=== PATIENT | female | born 1975 | race Caucasian/White ===

== ENCOUNTER 2016-06-11 12:34 | Emergency (ER) | payer SELFPAY ==
[~2016-06-11] VITALS: Ht 154.9 cm; Wt 56.7 kg
[2016-06-11 12:36] VITALS: BP 126/87
[2016-06-11] MEDS ORDERED: FLUORESCEIN OPHTH TEST STRIP. OS ONE (13:15)
[2016-06-11] MEDS ORDERED: TETRACAINE 0.5% OPHTH SOLUTION 4ML BOTTLE. OS ONE (13:15)
[2016-06-11] MEDS ORDERED: EYE-STREAM OPHTH SOLUTION 120 ML BOTTLE. OS ONE (13:15)
[2016-06-11] MEDS ORDERED: SULF1TAB24 PO (13:16)
[2016-06-11] MEDS ORDERED: POLY10DR3 LEFTEYE (13:16)
--- NOTE | 2016-06-11 13:16 | PHYS DOC ---
Past Medical History Past Medical History: Anxiety, Cancer, Depression Past Surgical History: Appendectomy, Cholecystectomy, Hysterectomy Alcohol Use: None Drug Use: None Adult General Chief Complaint Chief Complaint: SKIN RASH/ABSCESS [facility] HPI Patient is a 40 year old female presents emergency department stating that she is having drainage discharge or crusty stuff on his her left eye. She states that she has been having these blister type areas on her scalp left hand as well as reddened areas around her perineal area on bilateral legs. Patient states this is been going on for at least a week. She states the areas are very itchy. She denies any discharge or drainage from the areas. She denies fever, chills or nausea or vomiting. Patient denies use of glasses or contact lenses. Review of Systems Review of Systems Constitutional: Denies fever or chills [] Eyes: Denies change in visual acuity, she will with redness to left eyes with yellow drainage noted on eyelids. HENT: Denies nasal congestion or sore throat [] Respiratory: Denies cough or shortness of breath [] Cardiovascular: No additional information not addressed in HPI [] GI: Denies abdominal pain, nausea, vomiting, bloody stools or diarrhea [] : Denies dysuria or hematuria [] Musculoskeletal: Denies back pain or joint pain [] Integument: Denies rash or skin lesions. Patient with sores noted and scalp area , multiple sore areas noted in the perineal area. Patient with blister type areas noted on left hand. Patient was also noted to have sores on her legs with bruising noted around them. Neurologic: Denies headache, focal weakness or sensory changes [] Current Medications Current Medications Current Medications Medications (Trade) Dose Ordered Sig/Demetrio Start Time Stop Time Status Last Admin Dose Admin Eye Irrigation Solution (Eye-Stream) 120 ml 1X ONCE 06/11/16 13:15 06/11/16 13:16 DC 06/11/16 13:19 120 ML Fluorescein Sodium (Ful-Jaqueline) 1 strip 1X ONCE 06/11/16 13:15 06/11/16 13:16 DC 06/11/16 13:19 1 STRIP Tetracaine HCl (Tetracaine) 1 drop 1X ONCE 06/11/16 13:15 06/11/16 13:16 DC 06/11/16 13:19 1 DROP Allergies Allergies Allergies Coded Allergies Type Severity Reaction Last Updated Verified No Known Drug Allergies 3/15/17 No Physical Exam Physical Exam Constitutional: Well developed, well nourished, no acute distress, non-toxic appearance. [] HENT: Normocephalic, atraumatic, bilateral external ears normal, oropharynx moist, no oral exudates, nose normal. Bilateral tympanic membranes appear to be normal. Throat with no erythematous. Eyes: PERRLA, EOMI, conjunctiva red with yellow discharge noted around the lashes. Neck: Normal range of motion, no tenderness, supple, no stridor. [] Cardiovascular:Heart rate regular rhythm, no murmur [] Lungs & Thorax: Bilateral breath sounds clear to auscultation [] Skin: Warm, dry, no erythema, no rash. Patient with multiple sores throughout scalp, perineal area abdomen and flank areas, as well as bilateral legs. Patient was also noted to have sores that have bruising around them on the legs. Back: No tenderness Extremities: No tenderness, no cyanosis, no clubbing, ROM intact, no edema. [] Neurologic: Alert and oriented X 3, normal motor function, normal sensory function, no focal deficits noted. [] Psychologic: Affect normal, judgement normal, mood normal. [] Current Patient Data Vital Signs Vital Signs Date Time Temp Pulse Resp B/P Pulse Ox O2 Delivery O2 Flow Rate FiO2 06/11/16 12:36 98 93 18 97 Room Air 98.0 Lab Values Laboratory Tests Test 06/11/16 13:10 White Blood Count 7.3x10^3/uL (4.0-11.0) Red Blood Count 4.17x10^6/uL (3.50-5.40) Hemoglobin 12.5g/dL (12.0-15.5) Hematocrit 37.2% (36.0-47.0) Mean Corpuscular Volume 89fL (79-100) Mean Corpuscular Hemoglobin 30pg (25-35) Mean Corpuscular Hemoglobin Concent 34g/dL (31-37) Red Cell Distribution Width 12.8% (11.5-14.5) Platelet Count 233x10^3/uL (140-400) Neutrophils (%) (Auto) 56% (31-73) Lymphocytes (%) (Auto) 30% (24-48) Monocytes (%) (Auto) 10% (0-9) H Eosinophils (%) (Auto) 2% (0-3) Basophils (%) (Auto) 1% (0-3) Neutrophils # (Auto) 4.1x10^3uL (1.8-7.7) Lymphocytes # (Auto) 2.2x10^3/uL (1.0-4.8) Monocytes # (Auto) 0.8x10^3/uL (0.0-1.1) Eosinophils # (Auto) 0.2x10^3/uL (0.0-0.7) Basophils # (Auto) 0.0x10^3/uL (0.0-0.2) Sodium Level 146mmol/L (136-145) H Potassium Level 3.8mmol/L (3.5-5.1) Chloride Level 106mmol/L (98-107) Carbon Dioxide Level 28mmol/L (21-32) Anion Gap 12 (6-14) Blood Urea Nitrogen 19mg/dL (7-20) Creatinine 0.7mg/dL (0.6-1.0) Estimated GFR (Cockcroft-Gault) 93.6 BUN/Creatinine Ratio 27 (6-20) H Glucose Level 97mg/dL (70-99) Calcium Level 9.4mg/dL (8.5-10.1) Total Bilirubin 0.6mg/dL (0.2-1.0) Aspartate Amino Transferase (AST) 38U/L (15-37) H Alanine Aminotransferase (ALT) 41U/L (14-59) Alkaline Phosphatase 74U/L (46-116) Total Protein 7.4g/dL (6.4-8.2) Albumin 4.2g/dL (3.4-5.0) Albumin/Globulin Ratio 1.3 (1.0-1.7) Laboratory Tests 06/11/16 13:10 Laboratory Tests 06/11/16 13:10 EKG EKG [] Radiology/Procedures Radiology/Procedures [] Course & Med Decision Making Course & Med Decision Making Pertinent Labs and Imaging studies reviewed. (See chart for details) Tetracaine was placed into the left eye. No fluorescein uptake noted. Patient was noted to have no foreign bodies in the left eye. Spoke with patient in regards to conjunctivitis good handwashing. Also spoke with patient regards to folliculitis. Patient's CBC and CMP within normal limits. She'll be provided with eyedrops for the left eye as well as Bactrim for the folliculitis. Recommended following up with primary care physician in the next 3-5 days. Signs and symptoms to return back to emergency department if also been provided. Also recommended following up with an software test analyst in the next 24 hours. Patient agrees with discharge instructions treatment regimens and follow- up recommendations. [] Dragon Disclaimer Dragon Disclaimer This electronic medical record was generated, in whole or in part, using a voice recognition dictation system. Departure Departure Impression: Primary Impression: Conjunctivitis, left eye Additional Impression: Folliculitis Disposition: HOME, SELF-CARE Condition: STABLE Referrals: NO PCP (PCP) Vinod WU MD Patient Instructions: Conjunctivitis (Viral and Bacterial), Folliculitis Additional Instructions: Activity as tolerated Medication as prescribed Tylenol or Ibuprofen for pain and discomfort Good hand washing is essential Watch for signs and symptoms of infection: redness, warmth, tenderness or any yellow/greenish drainage that may come from the site. If this should develop followup with your primary care provider immediately. Followup with software test analyst in 24 hours Return to emergency department as needed for signs and symptoms that become worse Scripts Polymyxin B Sulf/Trimethoprim (Polymyxin B-Tmp Eye Drops)10 Ml Drops1 Drop LEFTEYE QID #10 ML Use to the left eye for the next 7 days Prov:JESSY CAMEJO APRN 06/11/16 Sulfamethoxazole/Trimethoprim (Bactrim Ds Tablet)1 Each Tablet1 Tab PO BID #20 TAB Prov:JESSY CAMEJO APRN 06/11/16 Problem Qualifiers JESSY CAMEJO APRN Jun 11, 2016 13:16
[2016-06-11 14:05] LABS: BASO % 1 % (0-3); EOS % 2 % (0-3); HEMATOCRIT 37.2 % (36.0-47.0); HEMOGLOBIN 12.5 g/dL (12.0-15.5); LYMPH # 2.2 x10^3/uL (1.0-4.8); LYMPH % 30 % (24-48); MEAN CORPUSCULAR HEMOGLOBIN 30 pg (25-35); MEAN CORPUSCULAR HGB CONC 34 g/dL (31-37); MEAN CORPUSCULAR VOLUME 89 fL (79-100); MONO % 10 % (0-9); NEUT % 56 % (31-73); PLATELET COUNT 233 x10^3/uL (140-400); RED BLOOD COUNT 4.17 x10^6/uL (3.50-5.40); RED CELL DISTRIBUTION WIDTH 12.8 % (11.5-14.5); WHITE BLOOD COUNT 7.3 x10^3/uL (4.0-11.0)
[2016-06-11 14:14] LABS: TOTAL PROTEIN 7.4 g/dL (6.4-8.2)
[2016-06-11 14:15] LABS: ALBUMIN 4.2 g/dL (3.4-5.0); ALBUMIN/GLOBULIN RATIO 1.3 (1.0-1.7); CALCIUM 9.4 mg/dL (8.5-10.1); CREATININE 0.7 mg/dL (0.6-1.0); GFR 93.6; POTASSIUM 3.8 mmol/L (3.5-5.1); TOTAL BILIRUBIN 0.6 mg/dL (0.2-1.0)
== END 2016-06-11 14:25 | disposition home or self-care (01) ==
LOC: ER 12:34
DX: H10.9 Unspecified conjunctivitis (principal); L73.9 Follicular disorder, unspecified; F41.9 Anxiety disorder, unspecified; F32.9 Major depressive disorder, single episode, unspecified
CPT/HCPCS: 36415; 80053; 85027; 99284